=== PATIENT | female | born 1955 | race Caucasian/White ===

== ENCOUNTER 2022-08-25 10:45 | Outpatient (CLI) | payer OTHER ==
[~2022-08-25 10:45] MED LIST: CIPRO500 MG PO; DOLOGESIC CAPLE1 TAB PO
== END 2022-08-25 10:49 | disposition home or self-care (01) ==
LOC: RAD 10:45
PROVIDERS: ATTEND Orthopaedic Surgery
DX: M25.561 Pain in right knee (principal); M25.562 Pain in left knee